=== PATIENT | female | born 1940 | race African-American/Black ===

== ENCOUNTER 2025-03-30 13:05 | Inpatient (IN) | payer MEDICARE, MEDICAID ==
[~2025-03-30] VITALS: Ht 172.7 cm; Wt 70.8 kg
[~2025-03-30 13:05] MED LIST: ACET-868 PO; AMLO-213 PO; ASPI-1169 PO; BENA40TA67 PO; BISA10SU61 RC; CARB200T9 PO; CLON0.1T PO; CRAN1TAB3 PO; DEXT1CAP3 PO; DIVA500T2 PO; DOCU100C68 PO; FURO-144 PO; HYDR-4077 PO; ISOS20TA PO; LABE100T25 PO; LABE200T5 PO; LOVA40TA2 PO; MAG355OR18 PO; MAGN400O6 PO; NA P133E RC; POTA20TA83 PO; SIMV-46 PO; TOPI25TA PO; VALP250S4 PO; VALS80TA31 PO
[2025-03-30] MEDS ORDERED: FERR325T23 PO (14:11)
[2025-03-30] MEDS ORDERED: CRAN250C PO (14:11)
[2025-03-30] MEDS ORDERED: BISA10SU61 RC (14:11)
[2025-03-30] MEDS ORDERED: LOSA50TA39 PO (14:11)
[2025-03-30] MEDS ORDERED: DIVA-76 PO (14:11)
[2025-03-30] MEDS ORDERED: ATOR10TA PO (14:11)
[2025-03-30 14:18] LABS: PLATELET COUNT (AUTO) 189 K/uL (150-450); RED BLOOD CELL COUNT(AUTO) 3.08 MIL/uL (4.0-5.2); RED CELL DISTRIBUTION WIDTH 15.0 % (11.5-15.0); WHITE BLOOD COUNT (AUTO) 6.2 K/uL (4.3-11.0)
[2025-03-30] MEDS: IV NS 0.9% 1,000 ML BAG IV ONE (14:18)
[2025-03-30 14:25] LABS: CALCIUM, SERUM 8.6 mg/dL (8.5-10.1); CREATININE 1.1 mg/dL (0.6-1.3); SODIUM SERUM 136 mmol/L (136-145); UREA NITROGEN, BLOOD 28 mg/dL (7-18)
[2025-03-30 14:30] LABS: INR 1.04 (0.91-1.10)
[2025-03-30] MEDS ORDERED: MAG HYDROX/AL HYDROX/SIMETH 30 ML UDC PO PRN (15:00)
[2025-03-30] MEDS ORDERED: ONDANSETRON HCL/PF 4 MG/2 ML VIAL IVP PRN (15:00)
[2025-03-30] MEDS ORDERED: ACETAMINOPHEN 325 MG TABLET PO PRN (15:00)
[2025-03-30] MEDS ORDERED: MAGNESIUM HYDROXIDE 30 ML UDC PO PRN (15:00)
[2025-03-30] MEDS ORDERED: ZOLPIDEM TARTRATE 5 MG TABLET PO PRN (15:00)
[2025-03-30] MEDS ORDERED: Z GUARD REMEDY 4 OZ OINT TP PRN (15:00)
[2025-03-30 16:00] VITALS: BP 168/95; TEMP 98.6; O2SAT 98
[2025-03-30 16:49] LABS: APPEARANCE,URINE CLEAR (CLEAR); BLOOD, URINE NEGATIVE Ery/uL (NEGATIVE); LEUKOCYTE ESTERASE ,URINE 2+ (NEGATIVE); NITRITE, URINE NEGATIVE (NEGATIVE); UGLUCOSE NEGATIVE (NEGATIVE)
[2025-03-30] MEDS: ENOXAPARIN SODIUM 40 MG/0.4 ML DISP.SYRIN SQ SCH (17:00)
[2025-03-30 17:28] LABS: ADD URINE CULTURE YES
[2025-03-30 17:35] LABS: SQUAMOUS EPITHELIAL CELL,UR Moderate /HPF (None Seen)
[2025-03-30 18:32] VITALS: BP 137/81; TEMP 98.3; O2SAT 98
[2025-03-30 20:00] VITALS: BP 120/89; TEMP 98.6; O2SAT 98
[2025-03-30] MEDS: IV 1/2NS 1000 ML 1,000 ML IV PRN (21:08)
[2025-03-31] MEDS: HYDROCODONE/APAP 5/325MG TABLET PO PRN (02:10)
[2025-03-31 04:00] VITALS: BP_SYST 146; BP_SYST 151; BP_DIAS 79; BP_DIAS 84; TEMP 98.1; O2SAT 98; O2SAT 99
[2025-03-31 06:34] LABS: CALCIUM, SERUM 8.5 mg/dL (8.5-10.1); CREATININE 0.8 mg/dL (0.6-1.3); PHOSPHORUS 3.2 mg/dL (2.5-4.9); SODIUM SERUM 138.0 mmol/L (136-145); UREA NITROGEN, BLOOD 22.0 mg/dL (7-18)
[2025-03-31 08:00] VITALS: BP 155/75; TEMP 97.5; O2SAT 98
[2025-03-31 08:08] LABS: PLATELET COUNT (AUTO) 183 K/uL (150-450); RED BLOOD CELL COUNT(AUTO) 3.11 MIL/uL (4.0-5.2); RED CELL DISTRIBUTION WIDTH 14.6 % (11.5-15.0); WHITE BLOOD COUNT (AUTO) 5.6 K/uL (4.3-11.0)
[2025-03-31] MEDS: PANTOPRAZOLE 40 MG TABLET.DR PO SCH (08:14)
[2025-03-31] MEDS ORDERED: MAGNESIUM HYDROXIDE 30 ML UDC PO PRN (12:00)
[2025-03-31] MEDS ORDERED: CLONIDINE HCL 0.1 MG TABLET PO PRN (12:00)
[2025-03-31] MEDS ORDERED: BISACODYL SUPP (10 MG) 10 MG/SUPP.RECT SUPP.RECT RC PRN (12:00)
[2025-03-31] MEDS ORDERED: NA PHOS,M-B/NA PHOS,DI-BA 1 EA ENEMA RC PRN (12:00)
[2025-03-31] MEDS: DIVALPROEX SODIUM 250 MG TABLET.DR PO SCH (12:39)
[2025-03-31] MEDS: CARBAMAZEPINE 200 MG TABLET PO SCH (12:39)
[2025-03-31] MEDS: LOSARTAN POTASSIUM 50 MG TABLET PO SCH (16:29)
[2025-03-31 20:32] VITALS: BP_SYST 144; BP_DIAS 78; BP_DIAS 93; TEMP 98; TEMP 98.4; O2SAT 96; O2SAT 98
[2025-03-31] MEDS: LABETALOL HCL (100MG) 100 MG TABLET PO SCH (20:56)
[2025-03-31] MEDS: TOPIRAMATE 25 MG TABLET PO SCH (21:03)
[2025-03-31] MEDS: DOCUSATE SODIUM 100 MG CAPSULE PO SCH (21:04)
[2025-03-31] MEDS: ATORVASTATIN 10 MG TABLET PO SCH (22:16)
[2025-04-01 08:30] VITALS: BP 164/89; TEMP 98.1; O2SAT 100
[2025-04-01] MEDS: FERROUS SULFATE (325 MG) 325 MG/TAB TABLET PO SCH (08:35)
[2025-04-01] MEDS: AMLODIPINE BESYLATE 10 MG TABLET PO SCH (08:35)
[2025-04-01 09:30] VITALS: BP 155/75
[2025-04-01] MEDS ORDERED: Z GUARD REMEDY 4 OZ OINT TP PRN (10:30)
[2025-04-01 16:00] VITALS: BP 151/83; TEMP 98.1; O2SAT 100
[2025-04-01 20:00] VITALS: BP 130/73; TEMP 98.2; O2SAT 97
[2025-04-02 08:00] VITALS: BP 123/97; TEMP 97.7; O2SAT 96
[2025-04-02 12:38] VITALS: BP 105/54; O2SAT 98
== END 2025-04-02 15:15 | DRG 556 ==
LOC: ER 13:14 → MED 15:41
DX: M25.552 Pain in left hip (principal); R62.7 Adult failure to thrive; F03.90 Unspecified dementia, unspecified severity, without behavioral disturbance, psychotic disturbance, mood disturbance, and anxiety; I12.9 Hypertensive chronic kidney disease with stage 1 through stage 4 chronic kidney disease, or unspecified chronic kidney disease; N18.9 Chronic kidney disease, unspecified; F20.9 Schizophrenia, unspecified; I25.10 Atherosclerotic heart disease of native coronary artery without angina pectoris; K59.00 Constipation, unspecified; R26.9 Unspecified abnormalities of gait and mobility; E78.5 Hyperlipidemia, unspecified; I25.2 Old myocardial infarction; Z86.73 Personal history of transient ischemic attack (TIA), and cerebral infarction without residual deficits; F39 Unspecified mood [affective] disorder; M19.90 Unspecified osteoarthritis, unspecified site; Z79.899 Other long term (current) drug therapy
CPT/HCPCS: 36415; 71045-TC; 73502; 80048-TC; 81001; 82962-TC; 83735-TC; 84100-TC; 85025-TC; 85730-TC; 86850-TC; 87081-TC; 87086-TC; 92526; 92611; 97110-TC; 97112-TC; 97530-TC; 97535-TC; A4223; G0378; J1650; J3490; J7030